=== PATIENT | female | born 1975 | race African-American/Black ===

== ENCOUNTER 2023-01-07 13:20 | Emergency (ER) | payer OTHER ==
[~2023-01-07] VITALS: Ht 170.2 cm; Wt 87.0 kg
[2023-01-07 13:28] VITALS: TEMP 98.2; O2SAT 99
[2023-01-07 15:09] LABS: BASOPHILS % 0.7 % (0.0-2.0); EOSINOPHILS % 0.2 % (0.0-5.0); HEMATOCRIT. 39.8 % (36.0-48.0); LYMPHOCYTES % 15.9 % (20.0-50.0); MEAN CORPUSCULAR HEMOGLOBIN 30.3 pg (28.0-32.0); MEAN CORPUSCULAR HGB CONC 32.7 g/dL (31.0-37.0); MEAN CORPUSCULAR VOLUME 92.9 fL (81.0-99.0); MEAN PLATELET VOLUME 8.9 fl (7.4-10.4); MONOCYTES % 7.4 % (2.0-8.0); NEUTROPHILS % 75.8 % (40.0-76.0); PLATELET 257 x1000/uL (130-400); RED BLOOD CELL COUNT 4.28 mill/uL (4.2-5.4); RED CELL DISTRIBUTION WIDTH 13.1 % (11.6-14.6); WHITE BLOOD COUNT 6.2 x1000/uL (4.5-11.0)
[2023-01-07 15:27] LABS: CLARITY URINE CLEAR (CLEAR); COLOR URINE YELLOW (YELLOW); GLUCOSE URINE NEGATIVE (NEGATIVE); KETONES URINE 2+ (NEGATIVE); LEUKOCYTE ESTERASE URINE NEGATIVE (NEGATIVE); NITRITE URINE NEGATIVE (NEGATIVE); OCCULT BLOOD URINE 3+ (NEGATIVE); PROTEIN URINE TRACE (NEGATIVE); SPECIFIC GRAVITY URINE 1.009 (1.005-1.030)
[2023-01-07] MEDS ORDERED: KETOROLAC 60MG/2ML VIAL IM ONE (15:30)
[2023-01-07 15:31] LABS: YEAST URINE NONE SEEN
[2023-01-07 15:32] LABS: CHLORIDE 109 mEq/L (98-107); INDEX HEMOLYSI 1 (1-3); INDEX ICTERIC 1 (1-4); INDEX LIPEMIC 1 (1-3); POTASSIUM 4.5 mEq/L (3.5-5.1); SODIUM 140 mEq/L (136-145)
[2023-01-07 15:40] LABS: HCG SCREEN NEGATIVE
[2023-01-07 15:54] VITALS: BP 168/92; PULSE 92; RESP 16
[2023-01-07 15:58] LABS: ALANINE AMINOTRANSFERASE 17 IU/L (13-61); ASPARTATE AMINOTRANSFERASE 18 IU/L (15-37); BILIRUBIN TOTAL 0.7 mg/dL (0.1-1.0); CALCIUM 10.7 mg/dL (8.5-10.1); CARBON DIOXIDE 24 mEq/L (21-32); CREATININE 0.7 mg/dL (0.6-1.3); GLUCOSE 98 mg/dL (70-105); UREA NITROGEN BLOOD 11 mg/dL (7-21)
[2023-01-07 16:09] LABS: BACTERIA URINE 1+; RBC URINE 15-25 /hpf (0-2); SQUAMOUS EPITHELIAL CELL URINE FEW /lpf (RARE/1+); WBC URINE 0-2 /hpf (0-2)
[2023-01-07] MEDS ORDERED: T3 PO (18:50)
[2023-01-07] MEDS ORDERED: IBUP-2029 MT (18:50)
== END 2023-01-07 19:17 | disposition home or self-care (01) ==
LOC: ER 13:20
DX: N23 Unspecified renal colic (principal)
CPT/HCPCS: 80053; 81003; 84703; 85025; 36415; 74176; 96372; 99291; J1885; Z7610